=== PATIENT | male | born 2000 | race Caucasian/White ===

== ENCOUNTER 2019-06-17 10:21 | Day surgery (SDC) | payer OTHER ==
[~2019-06-17] VITALS: Ht 180.3 cm; Wt 83.9 kg
[~2019-06-17 10:21] MED LIST: HYDROmorphone 2 MG/ML VIAL IV PRN; LIDOCAINE 1% PF 2 ML VIAL. ID PRN; MORPHINE SULFATE 2 MG/ML VIAL. IV PRN; ONDANSETRON PF 4 MG/2 ML VIAL. IV PRN; PROCHLORPERAZINE 10 MG/2 ML VIAL. IV PRN; fentaNYL PF VIAL 100 MCG/2 ML VIAL IV PRN
[2019-06-17] MEDS: IV RINGERS,LACTATED 1000ML 1,000 ML IV SCH ×2 (10:52→17:16)
--- NOTE | 2019-06-17 11:14 | DISCH ---
DISCHARGE INSTRUCTIONS Condition on Discharge Condition on Discharge: Stable Activity After Discharge Activity Instructions for Disc: Other, see below Bathing Instructions: Shower-keep dressing dry Weight Bearing Status after Di: Non weight bearing Diet after Discharge Diet after Discharge: Regular Wound Incision Care Wound/Incision Care: Ice to area for comfort, Keep wound/cast CDI, Change dressing Other wound/incision instructi: ok to change dressing after [address] after DC Call your doctor for: Concerns you may have Follow-Up Follow up with: Ish in 2wks ARVIND JENKINS II, MD Jun 17, 2019 11:14
[2019-06-17] MEDS ORDERED: fentaNYL PF VIAL 100 MCG/2 ML VIAL ONE ×3 (12:34→16:33)
[2019-06-17] MEDS ORDERED: MIDAZOLAM HCL/PF 2 MG/2 ML VIAL. ONE (12:34)
[2019-06-17] MEDS ORDERED: LIDOCAINE 1% 20 ML VIAL. ONE (13:05)
[2019-06-17] MEDS ORDERED: BUPIVACAINE MPF 0.5% 30 ML VIAL. ONE (13:05)
[2019-06-17] MEDS ORDERED: EPINEPHrine VIAL 30 MG/30 ML VIAL ONE (13:05)
[2019-06-17] MEDS ORDERED: PROPOFOL 20 ML IV ONE (13:07)
[2019-06-17] MEDS ORDERED: ONDANSETRON PF 4 MG/2 ML VIAL. ONE (13:07)
[2019-06-17] MEDS ORDERED: FAMOTIDINE 20 MG/2 ML VIAL ONE (13:07)
[2019-06-17] MEDS ORDERED: DEXAMETHASONE SOD PHOS 4 MG/ML VIAL ONE (13:07)
[2019-06-17] MEDS ORDERED: LIDOCAINE 2% PF 5 ML VIAL. ONE (13:07)
[2019-06-17] MEDS ORDERED: ePHEDrine PF IN SALINE 50 MG/10 ML SYRINGE. IV ONE (13:55)
[2019-06-17] MEDS ORDERED: ceFAZolin 2GM PREMIX 2 GM/50 ML BAG IV ONE (15:00)
[2019-06-17] MEDS ORDERED: SEVOFLURANE > 120 MINUTES. IH ONE (15:24)
--- NOTE | 2019-06-17 15:41 | PDOC4 ---
Operative Note Operative Note Date of procedure: 06/17/2019 Surgeon: Kenyon Jenkins Asst.: Martir Amanda Preoperative diagnosis: #1 left ACL tear #2 left medial meniscus tear Postoperative diagnosis: incomplete left ACL tear Procedures performed: #1 arthroscopic autograft hamstring ACL reconstruction left knee, with allograft augmentation Anesthesia: Gen. Tourniquet time: 90 min Blood loss: 10mL Complications: none Components inserted: [employer]hew 15 mm Endobutton, Ziomet TunneLoc, 10mm Reason for procedure: Patient is a very pleasant gentleman who injured his knee and presented to my outpatient orthopedic surgery clinic complaining of instability and some knee pain. Clinical and radiographic examination including MRI were consistent with the above preoperative diagnosis and given his desired activities he was to continue participating in, cutting and pivoting sports, he and I as well as his father had a discussion of the risks, benefits, and alternatives to the above surgery and he wished to proceed. Description of procedure: Patient was greeted in the preoperative area by myself for the correct extremity was verified and marked. He was taken to the operative suite and his antibiotics were started as he was brought back. Once in the operative room, he was transferred gently supine to the operating table and secured the bed with all pressure points padded. I then conducted my examination under anesthesia demonstrated that his knee was stable to varus and valgus at 0 and 30 of flexion. Negative dial, positive with a soft endpoint, positive pivot glide. After this, we placed a padded bump laterally at his left hip, applied the nonsterile tourniquet to his left upper thigh and a padded rest across the foot of the bed to maintain his knee at 90 passively. The left lower extremity was then prepped and draped in our usual sterile fashion and we conducted our standard preoperative timeout. After this, I palpated and marked surface anatomy and fernanda lines for my planned portal incisions and tibial incision. I then used a scalpel to incise skin over my standard anterolateral portal and introduced a blunt arthroscopic trocar and camera into the suprapatellar pouch. I then conducted my diagnostic arthroscopy with above noted findings and upon entering medial compartment used a spinal to localize an anteromedial portal and continued on with my diagnostic arthroscopy. At this point, I elected to remove the arthroscopic instrumentation, exsanguinate the extremity with an Esmarch and insufflated tourniquet to 250 mm. Mercury, and prepared to harvest my hamstrings. I incised skin over his hamstring insertion. I dissected subcutaneous tissue with Metzenbaums and electrocautery, cauterized bleeders as a were encountered. I used a lap sponge to sweep aside intensive cutaneous tissue over the sartorial fascia, palpated for the upper border of the hamstrings and open the sartorial fascia in line with the hamstrings. I then used to 90 clamps to clamp at the base of the tendons, taking these down sharply off the tibia and them with Metzenbaum scissors. I removed the overlying sartorial fascia and bluntly dissected them free of adhesions, and then placed a ultra braid whipstitch in each and continued freeing adhesions. Once they had good bounce past the tibial tubercle, I used a closed loop tendon harvester and harvested my hamstring tendons without complication. These were taken to the back table where they were denuded of adipose and muscular tissue. They were then cut at 21 cm. The opposite end was then whipstitched in the same fashion. These were folded and measured, it was about a 7-1/2 and a half at the tibia. I decided that given this gentleman stature and his athletic pursuits, that I would add an strip of allograft and after the allograft was thawed, I incised it in its midportion in line with its fibers, splitting these fibers apart with a hemostat and pulling the remainder of apart in a string cheese fashion. Ends of this were then whipstitched in a similar fashion, after it was cut to 21 cm in length. The graft was then secured to the Endobutton loop and placed under tension and wrapped in a moistened lap. We then directed attention back to the intra-articular portion of the procedure, and reached used to camera followed by the shaver and took down the ACL remnant. Used a combination of shaver biter and open curette for this. I inspected his yuhaaviatam anatomy from an anteromedial portal and marked this with a microfracture awl. After this, I used a tip guide and identified his PCL, borders of his medial lateral menisci as well, and referenced his [place]iatam anatomy at the tibial footprint as well and adva nced Beath pin. The tip of this was then protected with a curet and we reamed using the 10 mm reamer, which corresponded to the diameter of our graft at the tibial side. After this, I cleared the tunnel debris and placed my plug. We then used a 6 mm [id number] guide and a hyperflexion position to advance a Beath pin into my starting point at the femur. I advanced the Beath pin followed by the Endobutton reamer, then measured and inspected my tunnel positioner to reconfirm appropriate position and I was happy with her. After measuring, we repositioned the Beath pin and again held the knee in hyperflexion. We then reamed with the acorn reamer to appropriate depth and after this had removed all equipment than the camera, I used the shaver to remove loose bony debris from the knee itself and from the tunnel and inspected my tunnel and was happy. After this, I spent more time removing some loose debris and then directed my attention back to reintroducing the Beath pin in a hyperflexion position, I used this to shuttle a suture through which was then pulled through the tibial side and used to shuttle my passing sutures for my Endobutton through my ACL reconstruction tunnels. I was unable to pull the ACL and position confirming good toggle which greatly diminished on maximal back retraction of the graft. We then started repeatedly cycled the knee. I then the strands of the grafts and placed my tunnel lock device in position, securing and tensioning the graft suture followed by cycling the knee repeatedly again and retensioning it. I then impacted this into position. Then removed all attachments for this device and introduce the camera into the knee and took my final pictures and confirming no protruding foreign material or broken wire. More loose bony debris was removed at this time with vigorous Palpation posteriorly. After this, removed all excess arthroscopic fluid and the arthroscopic interpretation. Suture ends were cut. sartorial fascia was then closed with simple interrupted #2 nylon after I injected the hamstring harvest site with local anesthetic through the outer sheath of the shaver. Subcutaneous tissues closed with inverted interrupted 2-0 Vicryl. Portals and skin at tibial incision were closed with inverted interrupted Monocryl simple fashion for the portals and running subcuticular fashion for the tibial incision. Prior to wound closure, all counts were correct 2. After securing the graft, he had a negative Jonathan with a solid endpoint. At this point, leg was cleansed and dried and sterile bulky soft dressing was applied followed by an Bryan wrap and hinged knee brace. He is awake from anesthesia and transferred supine to the recovery room cart and taken to the PACU stable and extubated condition. Postoperative plan is to allow weightbearing as tolerated. Hell begin PT later this week. Ill see him back in 2 weeks, sooner should a problem arise. KENYON JENKINS II, MD Jun 17, 2019 15:41
--- NOTE | 2019-06-17 15:54 | RAD ---
Examination: KNEE LEFT 2V History: Incorrect count. Arthroscopic surgery. Comparison/Correlation: None Findings: Portable frontal view of the left knee was performed. Soft tissue gas in the medial aspect of the knee corresponding to recent surgical invention noted. Joint spaces are adequate. Lucency involving the distal femur and proximal tibia which appear to represent ACL graft placement noted. Radiopaque density along the anterolateral aspect of the distal femoral metaphysis noted but this appears be associated with ACL graft intervention. Correlate with surgical history. Impression: No suspicious radiopaque foreign body. Electronically signed by: Jaciel Alcocer MD (06/17/2019 3:51 PM) [facility]
[2019-06-17] MEDS ORDERED: OXYC-325 PO (16:20)
[2019-06-17] MEDS ORDERED: DOCU-109 PO (16:21)
[2019-06-17] MEDS ORDERED: ONDA8TAB9 PO/SL (16:22)
[2019-06-17] MEDS ORDERED: PROCHLORPERAZINE 10 MG/2 ML VIAL. ONE (16:30)
[2019-06-17] MEDS: fentaNYL PF VIAL 100 MCG/2 ML VIAL IV PRN ×4 (16:35→17:29)
[2019-06-17 17:45] VITALS: BP 130/51
== END 2019-06-17 18:23 | disposition home or self-care (01) ==
LOC: SURG 10:21
PROVIDERS: ATTEND Orthopaedic Surgery Sports Medicine
DX: S83.512A Sprain of anterior cruciate ligament of left knee, initial encounter (principal); X58.XXXA Exposure to other specified factors, initial encounter; Y93.89 Activity, other specified; Y92.89 Other specified places as the place of occurrence of the external cause; Y99.8 Other external cause status
CPT/HCPCS: 29888; 73560; A7015; C1713; C1763; J0171; J0780; J1100; J2001; J2250; J2405; J2704; J3010; J3490; J0696